=== PATIENT | female | born 2000 | race Caucasian/White ===

== ENCOUNTER 2024-09-27 03:59 | Emergency (ER) | payer BC | END 2024-09-27 05:25 | disposition home or self-care (01) | LOC: CC.ED 03:59 | DX: S63.501A Unspecified sprain of right wrist, initial encounter (principal); S60.212A Contusion of left wrist, initial encounter; Z79.899 Other long term (current) drug therapy; Z90.49 Acquired absence of other specified parts of digestive tract; W19.XXXA Unspecified fall, initial encounter | CPT/HCPCS: 73110-RT; 99283 ==

== ENCOUNTER 2025-01-16 10:26 | Emergency (ER) | payer BC | END 2025-01-16 11:35 | disposition home or self-care (01) | LOC: CC.ED 10:26 | DX: K59.00 Constipation, unspecified (principal); Z79.899 Other long term (current) drug therapy | CPT/HCPCS: 74019; 99283 ==

== ENCOUNTER 2025-09-25 09:13 | Emergency (ER) | payer BC ==
[2025-09-25] MEDS: Ondansetron 4 MG/2 ML SDV IVPUSH ONE (10:03)
== END 2025-09-25 12:07 | disposition home or self-care (01) ==
LOC: CC.ED 09:13
DX: O21.9 Vomiting of pregnancy, unspecified (principal); Z3A.08 8 weeks gestation of pregnancy; E86.0 Dehydration; Z79.899 Other long term (current) drug therapy; Z90.49 Acquired absence of other specified parts of digestive tract
CPT/HCPCS: 96361; 96374; 99283; J2405; J7030